=== PATIENT | male | born 1965 | race Caucasian/White ===

== ENCOUNTER → 2023-09-04 08:41 | Outpatient (CLI) | payer OTHER, SELFPAY ==
--- NOTE | ~2023-09-04 | CT_ITS ---
CT of the Abdomen and Pelvis: Indication: Abdominal pain Technique: 2.5 mm axial scans were obtained through the abdomen and pelvis following intravenous adm inistration of 100 cc of Omnipaque 350. Dose reduction technique was used on this scan by utilizing a utomated exposure control and iterative reconstruction technique. The dose-length product (DLP) was 7 97.23 mGy-cm. Findings: Scans through the lung bases are unremarkable. The liver, spleen, pancreas, gallbladder, adrenals and kidneys are within normal limits. No evidence of aortic aneurysm. No lymphadenopathy. Visualized bowel loops are unremarkable. No ascites. Small umbilical hernia containing small and fat and one wall single loop of small bowel. Impression: Small umbilical hernia, as above. No other significant findings. Reviewed, dictated and finalized at [facility]. DATA ARCHITECT Impression: Small umbilical hernia, as above. No other significant findings.
[2023-09-04 09:01] LABS: Estimated Glomerular Filt Rate 57
== END ==
PROVIDERS: PCP Internal Medicine; Visit Provider Internal Medicine
DX: R10.9 Unspecified abdominal pain (principal); K42.9 Umbilical hernia without obstruction or gangrene
CPT/HCPCS: 74160; Q9967